=== PATIENT | male | born 1995 | race Caucasian/White ===

== ENCOUNTER → 2022-11-03 | Outpatient (CLI) | payer OTHER ==
[~2022-11-03] MED LIST: PROHANCE 279.3MG/ML 15ML VIAL As Ordered ONE; PROHANCE 279.3MG/ML 5ML VIAL As Ordered ONE
== END ==
LOC: M RAD 15:31
PROVIDERS: ATTEND Physician Assistant
DX: M25.561 Pain in right knee (principal)

== ENCOUNTER 2023-05-20 15:44 | Emergency (ER) | payer OTHER ==
[~2023-05-20] VITALS: Ht 177.8 cm; Wt 90.9 kg
[2023-05-20 15:45] VITALS: BP 147/86; TEMP 97.3; O2SAT 96
[2023-05-20] MEDS ORDERED: LIDOCAINE 1% MDV 20ML VIAL SC ONE (16:45)
[2023-05-20] MEDS ORDERED: IBUPROFEN 600MG TAB PO ONE (16:45)
[2023-05-20] MEDS ORDERED: CEPHALEXIN 500 MG CAP PO ONE (16:45)
[2023-05-20] MEDS ORDERED: IBUP-1022 PO (17:23)
[2023-05-20] MEDS ORDERED: CEPH500T PO (17:23)
== END 2023-05-20 17:37 | disposition home or self-care (01) ==
LOC: M ED 15:44
DX: S61.217A Laceration without foreign body of left little finger without damage to nail, initial encounter (principal); W23.0XXA Caught, crushed, jammed, or pinched between moving objects, initial encounter; F10.10 Alcohol abuse, uncomplicated; Y99.1 Military activity

== ENCOUNTER 2024-06-01 20:05 | Emergency (ER) | payer OTHER ==
[~2024-06-01] VITALS: Ht 177.8 cm; Wt 100.0 kg
[~2024-06-01 20:05] MED LIST changes: +CEPH500T PO; +IBUP-1022 PO; -PROHANCE 279.3MG/ML 15ML VIAL As Ordered ONE; -PROHANCE 279.3MG/ML 5ML VIAL As Ordered ONE
[2024-06-01 21:01] LABS: BASO % 0.3 % (0.0-1.0); EOS # 0.1 10^3/uL (0.0-0.5); EOS % 1.2 % (0.0-3.0); HEMATOCRIT 43.1 % (42.0-52.0); HEMOGLOBIN 15.1 g/dl (13.5-17.5); LYMPH # 2.1 10^3/uL (1.5-5.0); LYMPH % 32.2 % (24.0-44.0); MEAN CORPUSCULAR HEMOGLOBIN 29.4 pg (27.0-33.0); MONO # 0.5 10^3/uL (0.0-0.8); MONO % 7.8 % (2.0-8.0); NEUTROPHILS # 3.9 10^3/uL (1.5-8.5); NEUTROPHILS % 58.2 % (36.0-66.0); PLATELET COUNT, AUTOMATED 256 10^3/uL (150-450); RED BLOOD COUNT 5.13 10^6/uL (4.30-6.10); WHITE BLOOD COUNT 6.7 10^3/uL (4.0-10.0)
[2024-06-01 21:21] LABS: BLOOD UREA NITROGEN 15 MG/DL (9-23); CARBON DIOXIDE LEVEL 28 MMOL/L (20-31); CHLORIDE LEVEL 107 MMOL/L (98-107); CREATININE FOR GFR 0.93 MG/DL (0.70-1.30); GLOMERULAR FILTRATION RATE > 60.0 (>60); GLUCOSE, FASTING 132 MG/DL (60-100); POTASSIUM SERUM 4.5 MMOL/L (3.5-5.1); SODIUM LEVEL 139 MMOL/L (136-145)
[2024-06-01 21:44] LABS: RSV AMPLIFICATION NEGATIVE (NEGATIVE)
[2024-06-01 23:52] VITALS: BP 139/93; TEMP 97.9; O2SAT 97
[2024-06-02] MEDS: KETOROLAC 60MG 2ML VIAL IM ONE (01:07)
[2024-06-02] MEDS: BENZONATATE 100MG CAPSULE PO ONE (01:09)
== END 2024-06-02 01:15 | disposition home or self-care (01) ==
LOC: M ED 20:05
DX: R05.9 Cough, unspecified (principal); F17.210 Nicotine dependence, cigarettes, uncomplicated; F10.10 Alcohol abuse, uncomplicated
CPT/HCPCS: 36415; 71045; 80048; 85025; 87631; 93005; 96372; 99284; J1885